=== PATIENT | female | born 1980 | race Caucasian/White ===

== ENCOUNTER 2020-08-24 00:22 | Inpatient (IN) | payer OTHER ==
[~2020-08-24] VITALS: Ht 162.6 cm; Wt 81.8 kg
[2020-08-24] VITALS (40 sets, daily range): BP systolic 118–168; BP diastolic 61–93; PULSE 64–107; TEMP 98–98.5
[~2020-08-24 00:22] MED LIST: FE-TABS325 MG PO; PRENATAL1 TA1 PO
--- NOTE | 2020-08-24 00:30 | NUR ---
G2L1 at 38 weeks and 5 days arrives to unit with strong contractions every 5 minutes apart. Pt denies loss of fluid or vaginal bleeding. Reports good movement. Pt denies headaches, blurry vision, or RUQ pain. Pt has been monitored closely for PIH recently. Clean gown on. Pt oriented to room, call light within reach, bed in low and locked position. US and toco explained and applied. Admission assessment start. Vital signs obtained. Plan of care reviewed. SVE /-3, membranes intact.
--- NOTE | 2020-08-24 01:10 | NUR ---
18G IV started in left forearm with 1 attempt. Admission labs obtained off IV start. Lactated Ringers infusing to gravity. Consents reviewed and signed with patient, all questions answered.
[2020-08-24 01:28] LABS: BASO % 0.3 % (0.0-2.0); EOS % 0.1 % (0-4.0); GRAN # 5.7 (1.4-6.5); GRAN % 71.6 % (42.2-75.2); LYMPH # 1.1 (1.2-3.4); LYMPH % 14.3 % (20.0-51.0); MEAN CELL VOLUME 87 fl (80.0-100.0); MEAN CORPUSCULAR HGB CONC 33 g/dl (33.0-37.0); MEAN PLATELET VOLUME 11.5 fl (7.4-10.4); MONO % 12.3 % (1.7-9.3); PLATELET COUNT 163 K/mm3 (130-400); RED BLOOD COUNT 3.36 M/mm3 (4.10-5.30); REDCELL DISTRIBUTION WIDTH-CV 12.5 % (11.5-14.5)
[2020-08-24 01:29] LABS: HEMATOCRIT 29.1 % (37.0-47.0); HEMOGLOBIN 9.6 g/dl (12.5-16.0); MEAN CORPUSCULAR HEMOGLOBIN 29 pg (27.0-31.0)
[2020-08-24] MEDS ORDERED: ZOLOFT 50MG50 MG PO (01:38)
[2020-08-24] MEDS ORDERED: CLARITIN 1010 MG/TAB PO (01:38)
[2020-08-24 01:39] LABS: ALBUMIN 3.4 gm/dL (3.5-5.0); BILIRUBIN,TOTAL 0.2 mg/dL (0.0-1.0); CALCIUM 8.9 mg/dL (8.4-10.2); CREATININE, serum 0.51 (0.52-1.25); POTASSIUM 3.8 mmol/L (3.4-5.0); TOTAL PROTEIN 6.5 gm/dL (6.4-8.2)
--- NOTE | 2020-08-24 05:20 | NUR ---
SVE 10/100/+2, pt feeling pressure and urge to push. Pt educated on pushing techniques, verbalized understanding. Positioned into footplates. Initial push at 0530.
--- NOTE | 2020-08-24 06:45 | NUR ---
FHR not tracing while Pt is pushing. Monitoring closely between UCs.
--- NOTE | 2020-08-24 07:15 | NUR ---
0701- Pt insturcted to stop pushing per MD SAMSON. Epidural bolus initiated. Pt coping well with UCs. Encouraged to call out if pressure increased or needs noted.
--- NOTE | 2020-08-24 07:35 | NUR ---
0731- Dr Quick and Rambo Soto, Nursery RN at bedside. Pt and room prepped for delivery. Pt begins pushing with UCs. 0735- of viable male infant. Infant to motherr's abd, tended to by nursery RN. 0745- Spontaneous delivery of placenta. Pitocin started at 333ml/hr. Fundus massaged to firm by . See MD delivery note. Pericare completed, ice pack to perineum. Fundus firm at this time. Pt resting comfortably with baby skin-2-skin.
--- NOTE | 2020-08-24 12:50 | NUR ---
1250- Pt calls out from bathroom stating she was trying to void, thought she was peeing but when she looked down it was dark red blood. This RN notes 200ml of dard red bloody fluid in hat, unsure if any urine is noted. Fundus feels firm but a steady trickly of blood noted with massage. Pt states she feels like she needs to void but cant, requests to try for a few more minutes. 1300- This RN checks with Pt, unable to void at this time. Discuss straight cath and assessment of vaginal bleeding. Pt aggrees with plan. 1305- Pt into bed, straight cath by this RN without difficulty. 1200mls of urine noted. Pericare completed. Fundal check, uterus firm after massage and D1, will continue to monitor. Vital signs obtained and BP elevated. Will notify .
--- NOTE | 2020-08-24 15:50 | NUR ---
1550- Pt up to bathroom, unable to void at this time. Discussed placing villegas in an hour if unable to void, Pt verbalizes understanding.
[2020-08-25 04:00] VITALS: BP 148/74; PULSE 64; TEMP 97.7
--- NOTE | 2020-08-25 07:31 | NUR ---
Patient refuses COVID19 swab.
[2020-08-25 07:32] VITALS: BP 153/91; PULSE 70; TEMP 98.1
[2020-08-25 10:19] VITALS: BP 130/74; PULSE 73; TEMP 98.4
[2020-08-25] MEDS ORDERED: PROCARDIA XL 3030 MG PO (11:14)
[2020-08-25] MEDS ORDERED: IBU800 M1 PO (11:14)
[2020-08-25 14:15] VITALS: BP 131/72; PULSE 71; TEMP 98.2
== END 2020-08-25 15:20 | disposition home or self-care (01) | DRG 807 ==
LOC: LDRO 00:22 → LDR 00:30 → OB 12:48
PROVIDERS: Obstetrics & Gynecology; ADMIT Student in an Organized Health Care Education/Training Program
PROC: 10E0XZZ Delivery of Products of Conception, External Approach (ICD-10-PCS; principal; 2020-08-24)
PROC: 0KQM0ZZ Repair Perineum Muscle, Open Approach (ICD-10-PCS; 2020-08-24)
PROC: 0UQMXZZ Repair Vulva, External Approach (ICD-10-PCS; 2020-08-24)
DX: O99.02 Anemia complicating childbirth (principal); Z37.0 Single live birth; O99.344 Other mental disorders complicating childbirth; F41.9 Anxiety disorder, unspecified; D64.9 Anemia, unspecified; O69.81X0 Labor and delivery complicated by cord around neck, without compression, not applicable or unspecified; O70.1 Second degree perineal laceration during delivery; O99.893 Other specified diseases and conditions complicating puerperium; R03.0 Elevated blood-pressure reading, without diagnosis of hypertension; Z3A.38 38 weeks gestation of pregnancy
CPT/HCPCS: J2590; J7120